=== PATIENT | female | born 1940 | race Asian ===

== ENCOUNTER 2019-11-22 01:00 | Inpatient (IN) | payer MEDICARE ==
[2019-11-22 03:01] VITALS: BP 139/84
[2019-11-22] MEDS ORDERED: Hydrocodone/APAP 5mg/325mg Tab PO PRN (04:24)
[2019-11-22] MEDS: Magnesium Hydroxide (MOM) 30 mL UDC PO SCH (04:30)
[2019-11-22] MEDS: Ferrous Sulfate 325 MG TAB PO SCH (08:33)
[2019-11-22] MEDS: Multivitamin w/ Minerals Tab PO SCH (08:33)
[2019-11-22] MEDS: Calcium Carb/Vit D 500 mg/200 U Tab PO SCH (08:48)
[2019-11-22] MEDS ORDERED: Non-Formulary Item 1 EA (Isosorbide Dinitrate [Isosorbide Dinitrate] 30 MG) PO SCH (09:00)
[2019-11-22] MEDS ORDERED: Non-Formulary Item 1 EA (Cranberry Fruit [Cranberry] 450 MG) PO SCH (09:00)
--- NOTE | 2019-11-22 18:18 | History & Physical ---
ADMIT DATE: 11/22/2019 DICTATING FOR: Dr. Bettencourt. HISTORY OF PRESENT ILLNESS: A 79-year-old female who is medically cleared from [facility] from withdrawal Convalescent, who was admitted to the Geropsych Unit due to increase of agitation and wandering and being nondirectable. PAST MEDICAL HISTORY: Hypertension, hyperlipidemia, cardiomegaly, seizures. PAST SURGICAL HISTORY: Unknown. ALLERGIES: No known drug allergies. HOME MEDICATIONS: See medication list. FAMILY HISTORY: Noncontributory. REVIEW OF SYSTEMS: GENERAL: Denies any fever or chills. CARDIOVASCULAR: Denies chest pain. RESPIRATORY: Denies shortness of breath. GASTROINTESTINAL: Denies nausea, vomiting, abdominal pain. GENITOURINARY: Denies increased frequency. NEUROLOGIC: No headaches, seizures, or syncope. All systems reviewed and negative. PHYSICAL EXAMINATION: EXTREMITIES: The patient is a well-developed, well-nourished, no apparent distress. VITAL SIGNS: Temperature 97.8, heart rate 63, blood pressure 123/72, respirations 20, O2 96%. HEENT: Head; normocephalic, atraumatic. NECK: Supple. No mass. LUNGS: Clear bilaterally. ABDOMEN: Soft, nontender, nondistended. ASSESSMENT: Hypertension, hyperlipidemia, cardiomegaly, seizures, agitation. PLAN: Continue the patient's home medications. Seizure precautions, will initiate fall precautions. We will continue to follow this patient. JOB# [id number]
[2019-11-22] MEDS: Atorvastatin Calcium 10 MG TAB PO SCH (21:02)
[2019-11-23] MEDS ORDERED: Magnesium Hydroxide (MOM) 30 mL UDC PO PRN (04:55)
[2019-11-23] MEDS: Magnesium Hydroxide (MOM) 30 mL UDC PO SCH (04:56)
[2019-11-23] MEDS: Calcium Carb/Vit D 500 mg/200 U Tab PO SCH (08:09)
[2019-11-23] MEDS: Ferrous Sulfate 325 MG TAB PO SCH (08:10)
[2019-11-23] MEDS: Multivitamin w/ Minerals Tab PO SCH (08:10)
--- NOTE | 2019-11-23 09:59 | Psychiatric Evaluation ---
DATE OF SERVICE: PSYCHIATRIC INITIAL EVALUATION AND MENTAL STATUS EXAM PATIENT'S AGE: 79. SEX: Female. PHYSICIAN: Dr. De La Cruz. CHIEF COMPLAINT: Wandering around. HISTORY OF PRESENT ILLNESS: The patient is a 79-year-old female, who was transferred from [facility] because of increased agitation and the patient has been wandering around the facility. The patient also had difficult time following directions. The patient also has been easily agitated and irritable and not able to listen to staff instructions. Staff in the facility was not able to handle her agitation and her being non-redirectable and she was disturbing milieu in the facility and she was transferred to the hospital. The patient has been calm since she arrived to the facility, but still needed redirections. She also has periods of irritability, but not as described by the staff on the unit there and shows slightly easier to redirect her. The patient also went to sleep at midnight and have difficulty trying to wake her up this morning. The patient was alert and oriented. The patient has history a of bipolar disorder and the patient was on Remeron, Zyprexa, and Depakote PAST PSYCHIATRIC HISTORY: The patient has a history of bipolar disorder. PAST MEDICAL HISTORY: The patient has history of hyperlipidemia, hypertension, seizure disorder, and cardiomegaly. CURRENT PSYCHOTROPIC MEDICATIONS: Remeron 15 mg at bedtime, Zyprexa 5 mg at bedtime, and Depakote 250 mg 3 times a day. FAMILY PSYCHIATRIC HISTORY: Nothing reported. CHEMICAL DEPENDENCY HISTORY: Nothing reported. PAIN ASSESSMENT: Nothing reported. LEGAL HISTORY: Nothing reported. ABUSE HISTORY: Nothing reported. SOCIAL HISTORY: The patient lives in [facility]. No known alcohol or street drug use. No information about family or children at this time. ALLERGIES: No known allergies. MENTAL STATUS EXAMINATION: The patient appears her stated age. Unkempt. Unsteady gait. The patient currently seems to be sedated and sleepy and did not answer any of my questions, but reports of unsteady gait and the patient is alert and oriented to time, place, person, and situation. I was not able to assess her orientation or memory at this time because the patient is sedated and was not answering any of my questions. No reports of suicide or homicide, but reports that she was alert and oriented to time, place, person, and situation. Poor insight and the patient did not know why she is in the hospital. Poor judgment and she was wandering in the facility. Unable to assess her intelligence at this time because the patient is sedated and sleepy. ASSESSMENT: PRIMARY DIAGNOSIS: Bipolar disorder, manic episode, moderate to severe, without psychotic features. TREATMENT PLAN: At this time, the patient seems to be more manic than psychotic and we will discontinue Zyprexa, but I will increase Depakote to 500 mg twice a day. Also, we will continue Remeron. The patient also is taking Aricept and will evaluate the patient's memory when more alert and will evaluate the need of Aricept. Also, we will work on behavioral modification. ESTIMATED LENGTH OF STAY: 5-7 days. PATIENT'S STRENGTHS AND WEAKNESSES: The patient seems to be in relatively fair health. Weaknesses is her wandering into other patient's rooms and her irritability. AFTER DISCHARGE PLAN: The patient will return to [facility] with plans for followup there. JOB# [id number]
--- NOTE | 2019-11-23 13:07 | Progress Notes ---
DATE: 11/23/[address] De La Cruz. Case was discussed with staff of the patient, reviewed records. This is a 79-year-old female who was admitted on 11/22/2019. She was wandering around, transferred from [facility] because of increasing agitation. The patient was wandering around, difficulty following direction, easily agitated, irritable, unable to listen to staff instruction, the staff on the nursing facility unable to handle her agitation, was non-redirectable, disturbing milieu in the facility. The patient continues to need redirection. The patient has a history of bipolar disorder. The patient continues to have poor insight. Unable to make safe plan for self-care, unpredictable, impulsive, and needing redirection. Depakote was increased to 500 mg twice a day and she was taken off Zyprexa. No side effects with the medication, no sedation, and no nausea and we will continue to work with the patient in group therapy, milieu therapy, and adjust medication as needed. JOB# [id number]
--- NOTE | 2019-11-23 18:32 | Internal Medicine Prog Note ---
Internal Medicine Subjective - Subjective Service Date: 11/23/19 Patient seen and examined:: with staff Patient is:: awake, verbal, confused Per staff patient has:: tolerating meds Internal Medicine Objective - Physical Exam Vitals and I&O: Vital Signs Temp 97.6 F 11/23/19 14:00 Pulse 78 11/23/19 16:30 Resp 18 11/23/19 14:00 BP 101/58 11/23/19 16:30 Pulse Ox 94 11/23/19 14:00 Intake & Output 11/22/19 11/23/19 11/23/19 18:59 06:59 18:59 Intake Total 240 1200 Balance 240 1200 Intake: Oral 240 1200 Other: # Voids 2 # Bowel Movements 0 1 Active Medications: Current Medications Acetaminophen (Tylenol) 650 mg PO Q6HR PRN PRN Reason: Temperature above 101 Stop: 01/21/20 04:23 Acetaminophen (Tylenol) 650 mg PO Q8HR PRN PRN Reason: Pain (Mild 1-3) Stop: 01/21/20 04:23 Acetaminophen/Hydrocodone Bitart ([place] 5mg/325mg) 1 tab PO Q4HR PRN PRN Reason: Severe Pain (7-10) Stop: 01/21/20 04:23 Ascorbic Acid (Vitamin C) 500 mg PO DAILY [facility] Stop: 01/21/20 08:59 Last Admin: 11/23/19 08:10 Dose: 500 mg Aspirin (Ecotrin) 81 mg PO DAILY [facility] Stop: 01/21/20 08:59 Last Admin: 11/23/19 08:09 Dose: 81 mg Atorvastatin Calcium (Lipitor) 10 mg PO [facility]; Protocol Stop: 01/21/20 20:59 Last Admin: 11/22/19 21:02 Dose: Not Given Bisacodyl (Dulcolax 10 Mg Supp) 10 mg RC DAILY PRN PRN Reason: Constipation Stop: 01/21/20 04:23 Calcium/Vitamin D (Oscal W/Vitamin D) 1 tab PO DAILY [facility] Stop: 01/21/20 08:59 Last Admin: 11/23/19 08:09 Dose: 1 tab Carvedilol (Coreg) 3.125 mg PO BID [facility] Stop: 01/21/20 08:59 Last Admin: 11/23/19 16:30 Dose: Not Given Docusate Sodium (Colace) 100 mg PO DAILY [facility] Stop: 01/21/20 08:59 Last Admin: 11/23/19 08:10 Dose: 100 mg Donepezil HCl (Aricept) 5 mg PO HS [facility] Stop: 01/21/20 20:59 Last Admin: 11/22/19 21:03 Dose: Not Given Ferrous Sulfate (Iron) 325 mg PO DAILY [facility] Stop: 01/21/20 08:59 Last Admin: 11/23/19 08:10 Dose: 325 mg Isosorbide Dinitrate 10 mg/ (Isosorbide Dinitrate 20 mg) 30 mg PO DAILY [facility] Stop: 01/21/20 10:59 Last Admin: 11/23/19 08:16 Dose: 30 mg Lisinopril (Zestril) 10 mg PO HS [facility] Stop: 01/21/20 20:59 Last Admin: 11/22/19 21:04 Dose: Not Given Lorazepam (Ativan) 0.5 mg PO Q4HR PRN; Protocol PRN Reason: Anxiety Stop: 12/22/19 03:00 Magnesium Hydroxide (Milk Of Magnesia) 30 ml PO HS PRN PRN Reason: Constipation Stop: 01/22/20 04:52 Mirtazapine (Remeron) 15 mg PO HS [facility]; Protocol Stop: 01/21/20 20:59 Last Admin: 11/22/19 21:03 Dose: Not Given Valproate Sodium (Depakene) 500 mg PO BID [facility]; Protocol Stop: 01/21/20 08:59 Last Admin: 11/23/19 16:29 Dose: 500 mg Zolpidem Tartrate (Ambien) 5 mg PO HS PRN PRN Reason: Insomnia Stop: 01/21/20 03:00 General: alert, demented HEENT: NC/AT, PERRLA Neck: Supple Lungs: CTAB Cardiovascular: RRR, Normal S1, Normal S2, without murmur Abdomen: soft, non-tender, non-distended, positive bowel sound Internal Medicine Assmt/Plan - Assessment Assessment: ASSESSMENT: Hypertension, hyperlipidemia, cardiomegaly, seizures, agitation. - Plan Plan: PLAN: Continue the patient's home medications. Seizure precautions, will initiate fall precautions. We will continue to follow this patient.
[2019-11-23] MEDS: Atorvastatin Calcium 10 MG TAB PO SCH (21:00)
[2019-11-24] MEDS: Ferrous Sulfate 325 MG TAB PO SCH (08:58)
[2019-11-24] MEDS: Multivitamin w/ Minerals Tab PO SCH (08:58)
[2019-11-24] MEDS: Calcium Carb/Vit D 500 mg/200 U Tab PO SCH (08:59)
--- NOTE | 2019-11-24 12:04 | Progress Notes ---
DATE: 11/24/2019 Case was discussed with staff of the patient, reviewed records. The patient also was hard to redirect, continues to be unable to follow direction, easily agitated and irritable, sometimes refusing medication, unable to participate in meaningful conversation. There has been no side effects with the medication, no sedation, no nausea, no extrapyramidal symptoms, and confused. We will continue to work with the patient in group therapy and milieu therapy, adjust the medication as needed. JOB# [id number] MAYDA
--- NOTE | 2019-11-24 13:21 | Internal Medicine Prog Note ---
Internal Medicine Subjective - Subjective Service Date: 11/24/19 Patient seen and examined:: with staff Patient is:: awake, verbal, agitated Patient Complaints of:: other (Hx of Seizures.) Per staff patient has:: no adverse event, no episodes of fall, tolerating meds Internal Medicine Objective - Physical Exam Vitals and I&O: Vital Signs Temp 96.8 F 11/24/19 06:00 Pulse 62 11/24/19 08:59 Resp 18 11/24/19 06:00 BP 100/52 11/24/19 08:59 Pulse Ox 96 11/24/19 06:00 Intake & Output 11/23/19 11/24/19 11/24/19 18:59 06:59 18:59 Intake Total 1200 240 Output Total 1 Balance 1200 239 Intake: Oral 1200 240 Output: Urine/Stool Mix 1 Other: # Voids 1 # Bowel Movements 1 Active Medications: Current Medications Acetaminophen (Tylenol) 650 mg PO Q6HR PRN PRN Reason: Temperature above 101 Stop: 01/21/20 04:23 Acetaminophen (Tylenol) 650 mg PO Q8HR PRN PRN Reason: Pain (Mild 1-3) Stop: 01/21/20 04:23 Acetaminophen/Hydrocodone Bitart ([place] 5mg/325mg) 1 tab PO Q4HR PRN PRN Reason: Severe Pain (7-10) Stop: 01/21/20 04:23 Ascorbic Acid (Vitamin C) 500 mg PO DAILY [facility] Stop: 01/21/20 08:59 Last Admin: 11/24/19 08:59 Dose: 500 mg Aspirin (Ecotrin) 81 mg PO DAILY [facility] Stop: 01/21/20 08:59 Last Admin: 11/24/19 08:59 Dose: 81 mg Atorvastatin Calcium (Lipitor) 10 mg PO [facility]; Protocol Stop: 01/21/20 20:59 Last Admin: 11/23/19 21:00 Dose: Not Given Bisacodyl (Dulcolax 10 Mg Supp) 10 mg RC DAILY PRN PRN Reason: Constipation Stop: 01/21/20 04:23 Calcium/Vitamin D (Oscal W/Vitamin D) 1 tab PO DAILY [facility] Stop: 01/21/20 08:59 Last Admin: 11/24/19 08:59 Dose: 1 tab Carvedilol (Coreg) 3.125 mg PO BID [facility] Stop: 01/21/20 08:59 Last Admin: 11/24/19 08:58 Dose: 3.125 mg Docusate Sodium (Colace) 100 mg PO DAILY [facility] Stop: 01/21/20 08:59 Last Admin: 11/24/19 08:58 Dose: 100 mg Donepezil HCl (Aricept) 5 mg PO HS [facility] Stop: 01/21/20 20:59 Last Admin: 11/23/19 21:00 Dose: Not Given Ferrous Sulfate (Iron) 325 mg PO DAILY [facility] Stop: 01/21/20 08:59 Last Admin: 11/24/19 08:58 Dose: 325 mg Isosorbide Dinitrate 10 mg/ (Isosorbide Dinitrate 20 mg) 30 mg PO DAILY [facility] Stop: 01/21/20 10:59 Last Admin: 11/24/19 08:59 Dose: Not Given Lisinopril (Zestril) 10 mg PO HS [facility] Stop: 01/21/20 20:59 Last Admin: 11/23/19 21:00 Dose: Not Given Lorazepam (Ativan) 0.5 mg PO Q4HR PRN; Protocol PRN Reason: Anxiety Stop: 12/22/19 03:00 Magnesium Hydroxide (Milk Of Magnesia) 30 ml PO HS PRN PRN Reason: Constipation Stop: 01/22/20 04:52 Mirtazapine (Remeron) 15 mg PO HS [facility]; Protocol Stop: 01/21/20 20:59 Last Admin: 11/23/19 21:01 Dose: Not Given Valproate Sodium (Depakene) 500 mg PO BID [facility]; Protocol Stop: 01/21/20 08:59 Last Admin: 11/24/19 08:58 Dose: 500 mg Zolpidem Tartrate (Ambien) 5 mg PO HS PRN PRN Reason: Insomnia Stop: 01/21/20 03:00 Physical Exam: Patient needs close monitoring, very agitated, easily frustrated. General: alert, demented HEENT: NC/AT, PERRLA Neck: Supple Lungs: CTAB Cardiovascular: RRR, Normal S1, Normal S2, without murmur Abdomen: soft, non-tender, non-distended, positive bowel sound Extremities: clear Neurological: no change Internal Medicine Assmt/Plan - Assessment Assessment: Hypertension. Seizure disorder. Hyperlipidemia. Cardiomegaly. Agitation. - Plan Plan: Continue present meds as directed. Monitor vitals and labs. Supportive care. Psych management as per Psych. Pain management. Monitor diet and nutritional support. Continue current treatment plan as ordered. Nutritional Asmnt/Malnutr-PDOC - Dietary Evaluation Malnutrition Findings (Please click <Entered> for more info): see orders.
[2019-11-24] MEDS: Atorvastatin Calcium 10 MG TAB PO SCH (21:04)
--- NOTE | 2019-11-25 08:52 | Progress Notes ---
DATE: 11/25/2019 SUBJECTIVE: The patient was seen in room. The patient is asleep, but easily arousable. The patient appears to be guarded, easily gets frustrated, poor impulse control. Otherwise, the patient appears to be in no acute distress. OBJECTIVE: VITAL SIGNS: Temperature 99.4, heart rate of 81, blood pressure 113/76, respirations 20, and 99% on room air. HEENT: Head is atraumatic and normocephalic. Eyes: Bilateral conjunctivae are clear. Bilateral pupils are equally round and reactive. NECK: Supple. No JVD. CARDIOVASCULAR: S1 and S2, without murmur. PULMONARY: Clear to auscultation. GASTROINTESTINAL: Soft and nontender without guarding. Positive bowel sounds. MUSCULOSKELETAL: No clubbing. No cyanosis noted. ASSESSMENT: 1. Bipolar disorder. 2. Hypertension. 3. Hyperlipidemia. 4. Seizure disorder. PLAN: We will keep the patient inpatient to Psychiatric Unit. We will follow up with a psychiatrist to monitor the patient's condition and behavior. We will put the patient on fall and on seizure precautions. Treatment plans were discussed with the patient's nurse. Treatment plans were discussed with Dr. Bettencourt. JOB# [id number]
[2019-11-25] MEDS: Ferrous Sulfate 325 MG TAB PO SCH (09:41)
[2019-11-25] MEDS: Multivitamin w/ Minerals Tab PO SCH (09:41)
[2019-11-25] MEDS: Calcium Carb/Vit D 500 mg/200 U Tab PO SCH (09:41)
--- NOTE | 2019-11-25 19:45 | Progress Notes ---
DATE: Case was discussed with staff of the patient, reviewed records. The patient continues to have poor insight, unpredictable, impulsive at times refusing her medication. Continues to be hard to redirect. She is sleeping better. She is a bit more alert, was able to go to the residential. No side effects with the medication, no sedation, no nausea, no extrapyramidal symptoms. We will continue outpatient group therapy, milieu therapy, adjust medication as needed. JOB# [id number]
[2019-11-25] MEDS: Atorvastatin Calcium 10 MG TAB PO SCH (21:02)
[2019-11-26] MEDS: Calcium Carb/Vit D 500 mg/200 U Tab PO SCH (11:18)
[2019-11-26] MEDS: Multivitamin w/ Minerals Tab PO SCH (11:19)
[2019-11-26] MEDS: Ferrous Sulfate 325 MG TAB PO SCH (11:19)
--- NOTE | 2019-11-26 14:10 | Internal Medicine Prog Note ---
Internal Medicine Subjective - Subjective Service Date: 11/26/19 Patient seen and examined:: with staff Patient is:: awake, verbal, agitated Patient Complaints of:: other (Hx of Seizures.) Per staff patient has:: no adverse event, no episodes of fall, tolerating meds Internal Medicine Objective - Physical Exam Vitals and I&O: Vital Signs Temp 97 F 11/26/19 07:00 Pulse 60 11/26/19 11:19 Resp 16 11/26/19 08:00 BP 105/63 11/26/19 11:19 Pulse Ox 97 11/26/19 07:00 Intake & Output 11/25/19 11/26/19 11/26/19 18:59 06:59 18:59 Intake Total 600 240 120 Balance 600 240 120 Intake: Oral 600 240 120 Other: # Voids 3 2 3 # Bowel Movements 0 Active Medications: Current Medications Acetaminophen (Tylenol) 650 mg PO Q6HR PRN PRN Reason: Temperature above 101 Stop: 01/21/20 04:23 Acetaminophen (Tylenol) 650 mg PO Q8HR PRN PRN Reason: Pain (Mild 1-3) Stop: 01/21/20 04:23 Acetaminophen/Hydrocodone Bitart ([place] 5mg/325mg) 1 tab PO Q4HR PRN PRN Reason: Severe Pain (7-10) Stop: 01/21/20 04:23 Last Admin: 11/26/19 11:17 Dose: 1 tab Ascorbic Acid (Vitamin C) 500 mg PO DAILY [facility] Stop: 01/21/20 08:59 Last Admin: 11/26/19 11:18 Dose: Not Given Aspirin (Ecotrin) 81 mg PO DAILY [facility] Stop: 01/21/20 08:59 Last Admin: 11/26/19 11:18 Dose: Not Given Atorvastatin Calcium (Lipitor) 10 mg PO HS [facility]; Protocol Stop: 01/21/20 20:59 Last Admin: 11/25/19 21:02 Dose: 10 mg Bisacodyl (Dulcolax 10 Mg Supp) 10 mg RC DAILY PRN PRN Reason: Constipation Stop: 01/21/20 04:23 Calcium/Vitamin D (Oscal W/Vitamin D) 1 tab PO DAILY [facility] Stop: 01/21/20 08:59 Last Admin: 11/26/19 11:18 Dose: Not Given Carvedilol (Coreg) 3.125 mg PO BID [facility] Stop: 01/21/20 08:59 Last Admin: 11/26/19 11:18 Dose: Not Given Docusate Sodium (Colace) 100 mg PO DAILY [facility] Stop: 01/21/20 08:59 Last Admin: 11/26/19 11:19 Dose: Not Given Donepezil HCl (Aricept) 5 mg PO HS [facility] Stop: 01/21/20 20:59 Last Admin: 11/25/19 21:02 Dose: 5 mg Ferrous Sulfate (Iron) 325 mg PO DAILY [facility] Stop: 01/21/20 08:59 Last Admin: 11/26/19 11:19 Dose: Not Given Isosorbide Dinitrate 10 mg/ (Isosorbide Dinitrate 20 mg) 30 mg PO DAILY [facility] Stop: 01/21/20 10:59 Last Admin: 11/26/19 11:19 Dose: Not Given Lisinopril (Zestril) 10 mg PO HS [facility] Stop: 01/21/20 20:59 Last Admin: 11/25/19 21:02 Dose: 10 mg Lorazepam (Ativan) 0.5 mg PO Q4HR PRN; Protocol PRN Reason: Anxiety Stop: 12/22/19 03:00 Last Admin: 11/26/19 11:17 Dose: 0.5 mg Magnesium Hydroxide (Milk Of Magnesia) 30 ml PO HS PRN PRN Reason: Constipation Stop: 01/22/20 04:52 Mirtazapine (Remeron) 15 mg PO HS [facility]; Protocol Stop: 01/21/20 20:59 Last Admin: 11/25/19 21:03 Dose: 15 mg Valproate Sodium (Depakene) 500 mg PO BID [facility]; Protocol Stop: 01/21/20 08:59 Last Admin: 11/26/19 09:17 Dose: 500 mg Zolpidem Tartrate (Ambien) 5 mg PO HS PRN PRN Reason: Insomnia Stop: 01/21/20 03:00 Physical Exam: Patient needs close monitoring, poor insight, irritable, refuses to take meds at times. General: alert, demented HEENT: NC/AT, PERRLA Neck: Supple Lungs: CTAB Cardiovascular: RRR, Normal S1, Normal S2, without murmur Abdomen: soft, non-tender, non-distended, positive bowel sound Extremities: clear Neurological: no change Internal Medicine Assmt/Plan - Assessment Assessment: Hypertension. Seizure disorder. Hyperlipidemia. Cardiomegaly. Agitation. - Plan Plan: Continue present meds as directed. Monitor vitals and labs. Supportive care. Psych management as per Psych. Pain management. Monitor diet and nutritional support. Continue current treatment plan as ordered. Nutritional Asmnt/Malnutr-PDOC - Dietary Evaluation Malnutrition Findings (Please click <Entered> for more info): Nutritional Asmnt/Malnutrition Start: 11/26/19 13: 23 Text: Status: Complete Freq: Protocol: Document 11/26/19 13:23 JEROME (Rec: 11/26/19 13:32 JEROME [id number]) Nutritional Asmnt/Malnutrition Patient General Information Nutritional Screening Moderate Risk Diagnosis Psychosis Pertinent Medical Hx/Surgical Hx HTN, Hyperlipidemia, Cardiomegaly, Seizures Subjective Information Pt is a 79-year-old female admitted on 11/22 d/t increased agitation and wandering without being redirectable. Pt is eating an estimated 50% of meals since admit date (x4 days) Per Meal/Nutrition Activity Record. Dietary is currently providing an estimated 1900 kcals and 80 gm Pro, per Pt PO intake this is providing an estimated 950 kcals and 40gm Pro to meet 70% kcal and 73% Pro needs. Nurse to encourage improved PO intake, will continue to monitor and recommend supplement as needed. Spoke with pt nurse Diamond concerning high BG lab value. A1c was ordered 11/22, results not in chart. Diamond is going to call lab to print out another copy of results. Will monitor and make diet recommendations as appropriate. Anthropometrics HT: 5 FT WT: 120 LB (54.55 kg) BMI: 23.46 (normal) GI/ Skin Integrity GI: WNL, Soft, Flat, Non- tender BM: 11/24 x1 I/O: 120/Not Noted Skin: WNL, Intact Tee: 19 Diet Order: Cardiac, WILDER Estimated Energy Needs: ( Geriatric, CBW) 8267-4750 kcals (25-30 kcals/ kg) 55-65g Pro (1.0-1.2 g/kg) 7869-3347 ml (25-30 ml/kg) Current Diet Order/ Nutrition Support Cardiac, WILDER Pertinent Medications Vitamin C, Lipitor, Dulcolax ( PRN), [place] with Vitamin D, Coreg, Ferrous Sulfate, MOM ( PRN) Pertinent Labs 11/21: Glucose 148, Alk Phos 130, Chol 225, LDL 127, HDL 50 Nutritional Hx/Data Height 1.52 m Height (Calculated Centimeters) 152.4 Current Weight (lbs) 54.431 kg Weight (Calculated Kilograms) 54.4 Weight (Calculated Grams) 31277.1 [place] Body Weight 100 LB (45.45 kg) % [place] Body Weight 120 Body Mass Index (BMI) 23.4 Weight Status Approriate GI Symptoms Last BM 11/24 x1 Skin Integrity/Comment: Skin: WNL, Intact Tee: 19 Current %PO Fair (50-74%) Estimated Nutritional Goals BEE in Kcals: Using Current wt Calories/Kcals/Kg 25-30 Kcals Calculated 3633-9246 Protein: Using Current wt Protein g/k.0-1.2 Protein Calculated 55-65 Fluid: ml 9165-2815 ml (25-30 ml/kg) Nutritional Problem 1. Problem Problem Altered nutrition related labs Etiology r/t endocrine dysfunction Signs/Symptoms: aeb labs (11/21) Glucose 148. Intervention/Recommendation Comments Continue Cardiac, WILDER diet as tolerated. Expected Outcomes/Goals Expected Outcomes/Goals 1.PO intake to meet 75% of estimated nutritional needs. 2.Monitor PO intake, wt, nutrition related labs, and skin integrity. 3.F/U as low risk in 7-10 days , 12/02-12/04.
--- NOTE | 2019-11-26 20:13 | Progress Notes ---
DATE: 11/26/2019 SUBJECTIVE: Case was discussed with staff of the patient, reviewed records. The patient is confused, unable to make safe plan for self-care. Continues to have poor insight, impulsive and unpredictable, hard to redirect. She refuses medication at times. No side effects with the medication, no sedation, no nausea, no extrapyramidal symptoms. We will continue to work with the patient in group therapy, milieu therapy, and adjust medication as needed. JOB# [id number]
[2019-11-26] MEDS: Atorvastatin Calcium 10 MG TAB PO SCH (21:00)
[2019-11-27] MEDS: Ferrous Sulfate 325 MG TAB PO SCH (09:48)
[2019-11-27] MEDS: Calcium Carb/Vit D 500 mg/200 U Tab PO SCH (09:48)
[2019-11-27] MEDS: Multivitamin w/ Minerals Tab PO SCH (09:49)
--- NOTE | 2019-11-27 11:05 | Internal Medicine Prog Note ---
Internal Medicine Subjective - Subjective Service Date: 11/27/19 Patient seen and examined:: with staff, chart reviewed Patient is:: awake, verbal, agitated Patient Complaints of:: other (Hx of Seizures.) Per staff patient has:: no adverse event, no episodes of fall, tolerating meds Internal Medicine Objective - Physical Exam Vitals and I&O: Vital Signs Temp 98.4 F 11/27/19 06:43 Pulse 65 11/27/19 09:49 Resp 18 11/27/19 06:43 BP 95/61 11/27/19 09:49 Pulse Ox 98 11/27/19 06:43 Intake & Output 11/26/19 11/27/19 11/27/19 18:59 06:59 18:59 Intake Total 520 300 Balance 520 300 Intake: Oral 520 300 Other: # Voids 3 3 # Bowel Movements 0 Active Medications: Current Medications Acetaminophen (Tylenol) 650 mg PO Q6HR PRN PRN Reason: Temperature above 101 Stop: 01/21/20 04:23 Acetaminophen (Tylenol) 650 mg PO Q8HR PRN PRN Reason: Pain (Mild 1-3) Stop: 01/21/20 04:23 Acetaminophen/Hydrocodone Bitart ([place] 5mg/325mg) 1 tab PO Q4HR PRN PRN Reason: Severe Pain (7-10) Stop: 01/21/20 04:23 Last Admin: 11/26/19 11:17 Dose: 1 tab Ascorbic Acid (Vitamin C) 500 mg PO DAILY [facility] Stop: 01/21/20 08:59 Last Admin: 11/27/19 09:49 Dose: 500 mg Aspirin (Ecotrin) 81 mg PO DAILY [facility] Stop: 01/21/20 08:59 Last Admin: 11/27/19 09:49 Dose: 81 mg Atorvastatin Calcium (Lipitor) 10 mg PO HS [facility]; Protocol Stop: 01/21/20 20:59 Last Admin: 11/26/19 21:00 Dose: 10 mg Bisacodyl (Dulcolax 10 Mg Supp) 10 mg RC DAILY PRN PRN Reason: Constipation Stop: 01/21/20 04:23 Calcium/Vitamin D (Oscal W/Vitamin D) 1 tab PO DAILY [facility] Stop: 01/21/20 08:59 Last Admin: 11/27/19 09:48 Dose: 1 tab Carvedilol (Coreg) 3.125 mg PO BID [facility] Stop: 01/21/20 08:59 Last Admin: 11/27/19 09:49 Dose: Not Given Docusate Sodium (Colace) 100 mg PO DAILY [facility] Stop: 01/21/20 08:59 Last Admin: 11/27/19 09:48 Dose: 100 mg Donepezil HCl (Aricept) 5 mg PO HS [facility] Stop: 01/21/20 20:59 Last Admin: 11/26/19 21:00 Dose: 5 mg Ferrous Sulfate (Iron) 325 mg PO DAILY [facility] Stop: 01/21/20 08:59 Last Admin: 11/27/19 09:48 Dose: 325 mg Isosorbide Dinitrate 10 mg/ (Isosorbide Dinitrate 20 mg) 30 mg PO DAILY [facility] Stop: 01/21/20 10:59 Last Admin: 11/27/19 09:49 Dose: Not Given Lisinopril (Zestril) 10 mg PO HS [facility] Stop: 01/21/20 20:59 Last Admin: 11/26/19 21:00 Dose: 10 mg Lorazepam (Ativan) 0.5 mg PO Q4HR PRN; Protocol PRN Reason: Anxiety Stop: 12/22/19 03:00 Last Admin: 11/26/19 11:17 Dose: 0.5 mg Magnesium Hydroxide (Milk Of Magnesia) 30 ml PO HS PRN PRN Reason: Constipation Stop: 01/22/20 04:52 Mirtazapine (Remeron) 15 mg PO HS [facility]; Protocol Stop: 01/21/20 20:59 Last Admin: 11/26/19 21:02 Dose: 15 mg Valproate Sodium (Depakene) 500 mg PO BID [facility]; Protocol Stop: 01/21/20 08:59 Last Admin: 11/27/19 09:48 Dose: 500 mg Zolpidem Tartrate (Ambien) 5 mg PO HS PRN PRN Reason: Insomnia Stop: 01/21/20 03:00 Last Admin: 11/26/19 21:03 Dose: 5 mg Physical Exam: Patient needs close monitoring, still non-cooperative with taking medications, easily frustrated and irritable. General: alert, demented HEENT: NC/AT, PERRLA Neck: Supple Lungs: CTAB Cardiovascular: RRR, Normal S1, Normal S2, without murmur Abdomen: soft, non-tender, non-distended, positive bowel sound Extremities: clear Neurological: no change Internal Medicine Assmt/Plan - Assessment Assessment: Hypertension. Seizure disorder. Hyperlipidemia. Cardiomegaly. Agitation. - Plan Plan: Continue present meds as directed. Monitor vitals and labs. Supportive care. Psych management as per Psych. Pain management. Monitor diet and nutritional support. Continue current treatment plan as ordered. Nutritional Asmnt/Malnutr-PDOC - Dietary Evaluation Malnutrition Findings (Please click <Entered> for more info): Nutritional Asmnt/Malnutrition Start: 11/26/19 13: 23 Text: Status: Complete Freq: Protocol: Document 11/26/19 13:23 JEROME (Rec: 11/26/19 13:32 JEROME [email or web address]) Nutritional Asmnt/Malnutrition Patient General Information Nutritional Screening Moderate Risk Diagnosis Psychosis Pertinent Medical Hx/Surgical Hx HTN, Hyperlipidemia, Cardiomegaly, Seizures Subjective Information Pt is a 79-year-old female admitted on 11/22 d/t increased agitation and wandering without being redirectable. Pt is eating an estimated 50% of meals since admit date (x4 days) Per Meal/Nutrition Activity Record. Dietary is currently providing an estimated 1900 kcals and 80 gm Pro, per Pt PO intake this is providing an estimated 950 kcals and 40gm Pro to meet 70% kcal and 73% Pro needs. Nurse to encourage improved PO intake, will continue to monitor and recommend supplement as needed. Spoke with pt nurse Diamond concerning high BG lab value. A1c was ordered 11/22, results not in chart. Diamond is going to call lab to print out another copy of results. Will monitor and make diet recommendations as appropriate. Anthropometrics HT: 5 FT WT: 120 LB (54.55 kg) BMI: 23.46 (normal) GI/ Skin Integrity GI: WNL, Soft, Flat, Non- tender BM: 11/24 x1 I/O: 120/Not Noted Skin: WNL, Intact Tee: 19 Diet Order: Cardiac, WILDER Estimated Energy Needs: ( Geriatric, CBW) 1905-9687 kcals (25-30 kcals/ kg) 55-65g Pro (1.0-1.2 g/kg) 2601-3427 ml (25-30 ml/kg) Current Diet Order/ Nutrition Support Cardiac, WILDER Pertinent Medications Vitamin C, Lipitor, Dulcolax ( PRN), [place] with Vitamin D, Coreg, Ferrous Sulfate, MOM ( PRN) Pertinent Labs 11/21: Glucose 148, Alk Phos 130, Chol 225, LDL 127, HDL 50 Nutritional Hx/Data Height 1.52 m Height (Calculated Centimeters) 152.4 Current Weight (lbs) 54.431 kg Weight (Calculated Kilograms) 54.4 Weight (Calculated Grams) 59800.1 [place] Body Weight 100 LB (45.45 kg) % [place] Body Weight 120 Body Mass Index (BMI) 23.4 Weight Status Approriate GI Symptoms Last BM 11/24 x1 Skin Integrity/Comment: Skin: WNL, Intact Tee: 19 Current %PO Fair (50-74%) Estimated Nutritional Goals BEE in Kcals: Using Current wt Calories/Kcals/Kg 25-30 Kcals Calculated 3720-3068 Protein: Using Current wt Protein g/k.0-1.2 Protein Calculated 55-65 Fluid: ml 7789-6590 ml (25-30 ml/kg) Nutritional Problem 1. Problem Problem Altered nutrition related labs Etiology r/t endocrine dysfunction Signs/Symptoms: aeb labs (11/21) Glucose 148. Intervention/Recommendation Comments Continue Cardiac, WILDER diet as tolerated. Expected Outcomes/Goals Expected Outcomes/Goals 1.PO intake to meet 75% of estimated nutritional needs. 2.Monitor PO intake, wt, nutrition related labs, and skin integrity. 3.F/U as low risk in 7-10 days , 12/02-12/04.
--- NOTE | 2019-11-27 18:47 | Progress Notes ---
DATE: 11/27/2019 Case was discussed with staff of the patient, reviewed records. The patient continues to be confused, continues to be easily agitated, continues to be hard to redirect, sometimes refusing medication, unpredictable, impulsive, hard to redirect at times. No side effects of the medication, no sedation, no nausea, no extrapyramidal symptoms. We will continue outpatient group therapy, milieu therapy, adjust medication as needed. JOB# [id number]
[2019-11-27] MEDS: Atorvastatin Calcium 10 MG TAB PO SCH (20:56)
[2019-11-28] MEDS: Ferrous Sulfate 325 MG TAB PO SCH (09:22)
[2019-11-28] MEDS: Multivitamin w/ Minerals Tab PO SCH (09:22)
[2019-11-28] MEDS: Calcium Carb/Vit D 500 mg/200 U Tab PO SCH (09:23)
--- NOTE | 2019-11-28 12:30 | Internal Medicine Prog Note ---
Internal Medicine Subjective - Subjective Service Date: 11/28/19 Patient seen and examined:: with staff, chart reviewed Patient is:: awake, verbal, agitated Patient Complaints of:: other (Hx of Seizures.) Per staff patient has:: no adverse event, no episodes of fall, tolerating meds Internal Medicine Objective - Physical Exam Vitals and I&O: Vital Signs Temp 98.2 F 11/28/19 06:29 Pulse 70 11/28/19 09:23 Resp 18 11/28/19 07:53 BP 95/65 11/28/19 09:23 Pulse Ox 92 11/28/19 06:29 Intake & Output 11/27/19 11/28/19 11/28/19 18:59 06:59 18:59 Intake Total 850 240 Balance 850 240 Intake: Oral 850 240 Other: # Voids 3 2 # Bowel Movements 0 Active Medications: Current Medications Acetaminophen (Tylenol) 650 mg PO Q6HR PRN PRN Reason: Temperature above 101 Stop: 01/21/20 04:23 Acetaminophen (Tylenol) 650 mg PO Q8HR PRN PRN Reason: Pain (Mild 1-3) Stop: 01/21/20 04:23 Acetaminophen/Hydrocodone Bitart ([place] 5mg/325mg) 1 tab PO Q4HR PRN PRN Reason: Severe Pain (7-10) Stop: 01/21/20 04:23 Last Admin: 11/26/19 11:17 Dose: 1 tab Ascorbic Acid (Vitamin C) 500 mg PO DAILY [facility] Stop: 01/21/20 08:59 Last Admin: 11/28/19 09:22 Dose: 500 mg Aspirin (Ecotrin) 81 mg PO DAILY [facility] Stop: 01/21/20 08:59 Last Admin: 11/28/19 09:22 Dose: 81 mg Atorvastatin Calcium (Lipitor) 10 mg PO HS [facility]; Protocol Stop: 01/21/20 20:59 Last Admin: 11/27/19 20:56 Dose: 10 mg Bisacodyl (Dulcolax 10 Mg Supp) 10 mg RC DAILY PRN PRN Reason: Constipation Stop: 01/21/20 04:23 Calcium/Vitamin D (Oscal W/Vitamin D) 1 tab PO DAILY [facility] Stop: 01/21/20 08:59 Last Admin: 11/28/19 09:23 Dose: 1 tab Carvedilol (Coreg) 3.125 mg PO BID [facility] Stop: 01/21/20 08:59 Last Admin: 11/28/19 09:23 Dose: Not Given Docusate Sodium (Colace) 100 mg PO DAILY [facility] Stop: 01/21/20 08:59 Last Admin: 11/28/19 09:22 Dose: 100 mg Donepezil HCl (Aricept) 5 mg PO HS [facility] Stop: 01/21/20 20:59 Last Admin: 11/27/19 20:56 Dose: 5 mg Ferrous Sulfate (Iron) 325 mg PO DAILY [facility] Stop: 01/21/20 08:59 Last Admin: 11/28/19 09:22 Dose: 325 mg Isosorbide Mononitrate (Imdur) 30 mg PO DAILY [facility] Stop: 01/27/20 08:59 Last Admin: 11/28/19 09:23 Dose: Not Given Lisinopril (Zestril) 10 mg PO HS [facility] Stop: 01/21/20 20:59 Last Admin: 11/27/19 20:57 Dose: Not Given Lorazepam (Ativan) 0.5 mg PO Q4HR PRN; Protocol PRN Reason: Anxiety Stop: 12/22/19 03:00 Last Admin: 11/28/19 02:13 Dose: 0.5 mg Magnesium Hydroxide (Milk Of Magnesia) 30 ml PO HS PRN PRN Reason: Constipation Stop: 01/22/20 04:52 Mirtazapine (Remeron) 15 mg PO HS [facility]; Protocol Stop: 01/21/20 20:59 Last Admin: 11/27/19 20:58 Dose: 15 mg Valproate Sodium (Depakene) 500 mg PO BID [facility]; Protocol Stop: 01/21/20 08:59 Last Admin: 11/28/19 09:22 Dose: 500 mg Zolpidem Tartrate (Ambien) 5 mg PO HS PRN PRN Reason: Insomnia Stop: 01/21/20 03:00 Last Admin: 11/27/19 20:58 Dose: 5 mg Physical Exam: Patient needs close monitoring, very confused, very impulsive, still agitated. General: alert, demented HEENT: NC/AT, PERRLA Neck: Supple Lungs: CTAB Cardiovascular: RRR, Normal S1, Normal S2, without murmur Abdomen: soft, non-tender, non-distended, positive bowel sound Extremities: clear Neurological: no change Internal Medicine Assmt/Plan - Assessment Assessment: Hypertension. Seizure disorder. Hyperlipidemia. Cardiomegaly. Agitation. - Plan Plan: Continue present meds as directed. Monitor vitals and labs. Supportive care. Psych management as per Psych. Pain management. Monitor diet and nutritional support. Continue current treatment plan as ordered. Nutritional Asmnt/Malnutr-PDOC - Dietary Evaluation Malnutrition Findings (Please click <Entered> for more info): Nutritional Asmnt/Malnutrition Start: 11/26/19 13: 23 Text: Status: Complete Freq: Protocol: Document 11/26/19 13:23 JEROME (Rec: 11/26/19 13:32 JEROME [id number]) Nutritional Asmnt/Malnutrition Patient General Information Nutritional Screening Moderate Risk Diagnosis Psychosis Pertinent Medical Hx/Surgical Hx HTN, Hyperlipidemia, Cardiomegaly, Seizures Subjective Information Pt is a 79-year-old female admitted on 11/22 d/t increased agitation and wandering without being redirectable. Pt is eating an estimated 50% of meals since admit date (x4 days) Per Meal/Nutrition Activity Record. Dietary is currently providing an estimated 1900 kcals and 80 gm Pro, per Pt PO intake this is providing an estimated 950 kcals and 40gm Pro to meet 70% kcal and 73% Pro needs. Nurse to encourage improved PO intake, will continue to monitor and recommend supplement as needed. Spoke with pt nurse Diamond concerning high BG lab value. A1c was ordered 11/22, results not in chart. Diamond is going to call lab to print out another copy of results. Will monitor and make diet recommendations as appropriate. Anthropometrics HT: 5 FT WT: 120 LB (54.55 kg) BMI: 23.46 (normal) GI/ Skin Integrity GI: WNL, Soft, Flat, Non- tender BM: 11/24 x1 I/O: 120/Not Noted Skin: WNL, Intact Tee: 19 Diet Order: Cardiac, WILDER Estimated Energy Needs: ( Geriatric, CBW) 1331-6483 kcals (25-30 kcals/ kg) 55-65g Pro (1.0-1.2 g/kg) 7825-4787 ml (25-30 ml/kg) Current Diet Order/ Nutrition Support Cardiac, WILDER Pertinent Medications Vitamin C, Lipitor, Dulcolax ( PRN), [place] with Vitamin D, Coreg, Ferrous Sulfate, MOM ( PRN) Pertinent Labs 11/21: Glucose 148, Alk Phos 130, Chol 225, LDL 127, HDL 50 Nutritional Hx/Data Height 1.52 m Height (Calculated Centimeters) 152.4 Current Weight (lbs) 54.431 kg Weight (Calculated Kilograms) 54.4 Weight (Calculated Grams) 31502.1 [place] Body Weight 100 LB (45.45 kg) % [place] Body Weight 120 Body Mass Index (BMI) 23.4 Weight Status Approriate GI Symptoms Last BM 11/24 x1 Skin Integrity/Comment: Skin: WNL, Intact Tee: 19 Current %PO Fair (50-74%) Estimated Nutritional Goals BEE in Kcals: Using Current wt Calories/Kcals/Kg 25-30 Kcals Calculated 1810-9594 Protein: Using Current wt Protein g/k.0-1.2 Protein Calculated 55-65 Fluid: ml 7652-8522 ml (25-30 ml/kg) Nutritional Problem 1. Problem Problem Altered nutrition related labs Etiology r/t endocrine dysfunction Signs/Symptoms: aeb labs (11/21) Glucose 148. Intervention/Recommendation Comments Continue Cardiac, WILDER diet as tolerated. Expected Outcomes/Goals Expected Outcomes/Goals 1.PO intake to meet 75% of estimated nutritional needs. 2.Monitor PO intake, wt, nutrition related labs, and skin integrity. 3.F/U as low risk in 7-10 days , 12/02-12/04.
[2019-11-28] MEDS: Atorvastatin Calcium 10 MG TAB PO SCH (20:45)
--- NOTE | 2019-11-28 23:41 | Progress Notes ---
DATE: 11/28/2019 Case was discussed with staff of the patient, reviewed records. The patient continues to be internally preoccupied. Continues to have poor insight, unable to make safe plan for self-care, unpredictable, impulsive, needing redirection. Sleeping better, eating better. No side effects with the medication, no sedation, no nausea, no extrapyramidal symptoms. Sometimes refuses medication. We will continue outpatient group therapy, milieu therapy, adjust medication as needed. JOB# [id number]
[2019-11-29] MEDS: Ferrous Sulfate 325 MG TAB PO SCH (08:26)
[2019-11-29] MEDS: Multivitamin w/ Minerals Tab PO SCH (08:26)
[2019-11-29] MEDS: Calcium Carb/Vit D 500 mg/200 U Tab PO SCH (08:26)
--- NOTE | 2019-11-29 13:40 | Internal Medicine Prog Note ---
Internal Medicine Subjective - Subjective Service Date: 11/29/19 Patient seen and examined:: with staff Patient is:: awake, verbal, agitated Patient Complaints of:: other (Hx of Seizures.) Per staff patient has:: no adverse event, no episodes of fall, tolerating meds Internal Medicine Objective - Physical Exam Vitals and I&O: Vital Signs Temp 98.2 F 11/28/19 20:30 Pulse 64 11/29/19 08:26 Resp 18 11/29/19 08:00 BP 112/66 11/29/19 08:26 Pulse Ox 98 11/28/19 20:30 Intake & Output 11/28/19 11/29/19 11/29/19 18:59 06:59 18:59 Intake Total 960 120 Balance 960 120 Intake: Oral 960 120 Other: # Voids 2 2 # Bowel Movements 0 0 Active Medications: Current Medications Acetaminophen (Tylenol) 650 mg PO Q6HR PRN PRN Reason: Temperature above 101 Stop: 01/21/20 04:23 Acetaminophen (Tylenol) 650 mg PO Q8HR PRN PRN Reason: Pain (Mild 1-3) Stop: 01/21/20 04:23 Acetaminophen/Hydrocodone Bitart ([place] 5mg/325mg) 1 tab PO Q4HR PRN PRN Reason: Severe Pain (7-10) Stop: 01/21/20 04:23 Last Admin: 11/26/19 11:17 Dose: 1 tab Ascorbic Acid (Vitamin C) 500 mg PO DAILY [facility] Stop: 01/21/20 08:59 Last Admin: 11/29/19 08:26 Dose: 500 mg Aspirin (Ecotrin) 81 mg PO DAILY [facility] Stop: 01/21/20 08:59 Last Admin: 11/29/19 08:26 Dose: 81 mg Atorvastatin Calcium (Lipitor) 10 mg PO HS [facility]; Protocol Stop: 01/21/20 20:59 Last Admin: 11/28/19 20:45 Dose: 10 mg Bisacodyl (Dulcolax 10 Mg Supp) 10 mg RC DAILY PRN PRN Reason: Constipation Stop: 01/21/20 04:23 Calcium/Vitamin D (Oscal W/Vitamin D) 1 tab PO DAILY [facility] Stop: 01/21/20 08:59 Last Admin: 11/29/19 08:26 Dose: 1 tab Carvedilol (Coreg) 3.125 mg PO BID [facility] Stop: 01/21/20 08:59 Last Admin: 11/29/19 08:26 Dose: 3.125 mg Docusate Sodium (Colace) 100 mg PO DAILY [facility] Stop: 01/21/20 08:59 Last Admin: 11/29/19 08:28 Dose: 100 mg Donepezil HCl (Aricept) 5 mg PO HS [facility] Stop: 01/21/20 20:59 Last Admin: 11/28/19 20:46 Dose: 5 mg Ferrous Sulfate (Iron) 325 mg PO DAILY [facility] Stop: 01/21/20 08:59 Last Admin: 11/29/19 08:26 Dose: 325 mg Isosorbide Mononitrate (Imdur) 30 mg PO DAILY [facility] Stop: 01/27/20 08:59 Last Admin: 11/29/19 08:29 Dose: Not Given Lisinopril (Zestril) 10 mg PO HS [facility] Stop: 01/21/20 20:59 Last Admin: 11/28/19 20:46 Dose: 10 mg Lorazepam (Ativan) 0.5 mg PO Q4HR PRN; Protocol PRN Reason: Anxiety Stop: 12/22/19 03:00 Last Admin: 11/28/19 02:13 Dose: 0.5 mg Magnesium Hydroxide (Milk Of Magnesia) 30 ml PO HS PRN PRN Reason: Constipation Stop: 01/22/20 04:52 Mirtazapine (Remeron) 15 mg PO HS [facility]; Protocol Stop: 01/21/20 20:59 Last Admin: 11/28/19 20:47 Dose: 15 mg Valproate Sodium (Depakene) 500 mg PO BID [facility]; Protocol Stop: 01/21/20 08:59 Last Admin: 11/29/19 08:26 Dose: 500 mg Zolpidem Tartrate (Ambien) 5 mg PO HS PRN PRN Reason: Insomnia Stop: 01/21/20 03:00 Last Admin: 11/28/19 20:47 Dose: 5 mg Physical Exam: Patient needs close monitoring, easily frustrated, dis-oriented, has poor judgment. General: alert, demented HEENT: NC/AT, PERRLA Neck: Supple Lungs: CTAB Cardiovascular: RRR, Normal S1, Normal S2, without murmur Abdomen: soft, non-tender, non-distended, positive bowel sound Extremities: clear Neurological: no change Internal Medicine Assmt/Plan - Assessment Assessment: Hypertension. Seizure disorder. Hyperlipidemia. Cardiomegaly. Agitation. - Plan Plan: Continue present meds as directed. Monitor vitals and labs. Supportive care. Psych management as per Psych. Pain management. Monitor diet and nutritional support. Continue present care management. Nutritional Asmnt/Malnutr-PDOC - Dietary Evaluation Malnutrition Findings (Please click <Entered> for more info): Nutritional Asmnt/Malnutrition Start: 11/26/19 13: 23 Text: Status: Complete Freq: Protocol: Document 11/26/19 13:23 JEROME (Rec: 11/26/19 13:32 JEROME [id number]) Nutritional Asmnt/Malnutrition Patient General Information Nutritional Screening Moderate Risk Diagnosis Psychosis Pertinent Medical Hx/Surgical Hx HTN, Hyperlipidemia, Cardiomegaly, Seizures Subjective Information Pt is a 79-year-old female admitted on 11/22 d/t increased agitation and wandering without being redirectable. Pt is eating an estimated 50% of meals since admit date (x4 days) Per Meal/Nutrition Activity Record. Dietary is currently providing an estimated 1900 kcals and 80 gm Pro, per Pt PO intake this is providing an estimated 950 kcals and 40gm Pro to meet 70% kcal and 73% Pro needs. Nurse to encourage improved PO intake, will continue to monitor and recommend supplement as needed. Spoke with pt nurse Diamond concerning high BG lab value. A1c was ordered 11/22, results not in chart. Diamond is going to call lab to print out another copy of results. Will monitor and make diet recommendations as appropriate. Anthropometrics HT: 5 FT WT: 120 LB (54.55 kg) BMI: 23.46 (normal) GI/ Skin Integrity GI: WNL, Soft, Flat, Non- tender BM: 11/24 x1 I/O: 120/Not Noted Skin: WNL, Intact Tee: 19 Diet Order: Cardiac, WILDER Estimated Energy Needs: ( Geriatric, CBW) 1845-9955 kcals (25-30 kcals/ kg) 55-65g Pro (1.0-1.2 g/kg) 7037-2225 ml (25-30 ml/kg) Current Diet Order/ Nutrition Support Cardiac, WILDER Pertinent Medications Vitamin C, Lipitor, Dulcolax ( PRN), [place] with Vitamin D, Coreg, Ferrous Sulfate, MOM ( PRN) Pertinent Labs 11/21: Glucose 148, Alk Phos 130, Chol 225, LDL 127, HDL 50 Nutritional Hx/Data Height 1.52 m Height (Calculated Centimeters) 152.4 Current Weight (lbs) 54.431 kg Weight (Calculated Kilograms) 54.4 Weight (Calculated Grams) 62684.1 [place] Body Weight 100 LB (45.45 kg) % [place] Body Weight 120 Body Mass Index (BMI) 23.4 Weight Status Approriate GI Symptoms Last BM 11/24 x1 Skin Integrity/Comment: Skin: WNL, Intact Tee: 19 Current %PO Fair (50-74%) Estimated Nutritional Goals BEE in Kcals: Using Current wt Calories/Kcals/Kg 25-30 Kcals Calculated 7218-8433 Protein: Using Current wt Protein g/k.0-1.2 Protein Calculated 55-65 Fluid: ml 8242-1407 ml (25-30 ml/kg) Nutritional Problem 1. Problem Problem Altered nutrition related labs Etiology r/t endocrine dysfunction Signs/Symptoms: aeb labs (11/21) Glucose 148. Intervention/Recommendation Comments Continue Cardiac, WILDER diet as tolerated. Expected Outcomes/Goals Expected Outcomes/Goals 1.PO intake to meet 75% of estimated nutritional needs. 2.Monitor PO intake, wt, nutrition related labs, and skin integrity. 3.F/U as low risk in 7-10 days , 12/02-12/04.
[2019-11-29] MEDS: Atorvastatin Calcium 10 MG TAB PO SCH (21:03)
--- NOTE | 2019-11-29 21:16 | Progress Notes ---
DATE: 11/29/2019 SUBJECTIVE: Chart was reviewed and the patient interviewed. Also discussed the patient's condition with the staff and reviewed records and labs. The patient is still resisting care and she is still in irritable and angry mood. The patient also is still suspicious and paranoid and needs prompt instructions for her ADLs compliance and also to take her medications. She also is still rambling and still has disorganized thoughts. Otherwise, the patient has continued to take her medications with no side effects. ASSESSMENT: The patient is still agitated and seems to be psychotic. TREATMENT PLAN: Continue Remeron 50 mg at bedtime and Depakote 500 mg twice a day and Aricept 5 mg at bedtime. Also, we will monitor Depakote blood level. Also, we will continue working on her poor impulse control and irritability. Hemoglobin A1c that was done on 11/27/2019 came back at 7. We will continue to monitor hemoglobin A1c level and monitor her blood sugar. JOB# [id number]
--- NOTE | 2019-11-30 07:25 | Progress Notes ---
DATE: SUBJECTIVE: Chart was reviewed and patient interviewed. Also discussed patient's condition with the staff and reviewed records and labs. The patient is still confused and anxious, but cooperative with her treatment. The patient also is interacting more. She also has been compliant with taking her medications with no side effects of medications. During interview, patient is still unkempt. She also seems to be slightly confused. She also still seems to be slightly suspicious and paranoid. Otherwise, no behavioral issues. ASSESSMENT: The patient is still confused. TREATMENT PLAN: Continue monitoring behavior and condition closely. Also Depakote blood level results are still pending. Also, working on her discharge plans and placement issue. JOB# [id number]
--- NOTE | 2019-11-30 11:15 | Internal Medicine Prog Note ---
Internal Medicine Subjective - Subjective Service Date: 11/30/19 Patient is:: awake, verbal, agitated Patient Complaints of:: other (Hx of Seizures.) Per staff patient has:: no adverse event, no episodes of fall, tolerating meds Internal Medicine Objective - Physical Exam Vitals and I&O: Vital Signs Temp 97.4 F 11/29/19 20:43 Pulse 93 11/29/19 21:03 Resp 18 11/30/19 08:00 BP 98/59 11/29/19 21:03 Pulse Ox 100 11/29/19 20:43 Intake & Output 11/29/19 11/30/19 11/30/19 18:59 06:59 18:59 Intake Total 360 120 Balance 360 120 Intake: Oral 360 120 Other: # Voids 2 1 # Bowel Movements 0 0 Active Medications: Current Medications Acetaminophen (Tylenol) 650 mg PO Q6HR PRN PRN Reason: Temperature above 101 Stop: 01/21/20 04:23 Acetaminophen (Tylenol) 650 mg PO Q8HR PRN PRN Reason: Pain (Mild 1-3) Stop: 01/21/20 04:23 Acetaminophen/Hydrocodone Bitart ([place] 5mg/325mg) 1 tab PO Q4HR PRN PRN Reason: Severe Pain (7-10) Stop: 01/21/20 04:23 Last Admin: 11/26/19 11:17 Dose: 1 tab Ascorbic Acid (Vitamin C) 500 mg PO DAILY [facility] Stop: 01/21/20 08:59 Last Admin: 11/29/19 08:26 Dose: 500 mg Aspirin (Ecotrin) 81 mg PO DAILY [facility] Stop: 01/21/20 08:59 Last Admin: 11/29/19 08:26 Dose: 81 mg Atorvastatin Calcium (Lipitor) 10 mg PO HS [facility]; Protocol Stop: 01/21/20 20:59 Last Admin: 11/29/19 21:03 Dose: 10 mg Bisacodyl (Dulcolax 10 Mg Supp) 10 mg RC DAILY PRN PRN Reason: Constipation Stop: 01/21/20 04:23 Calcium/Vitamin D (Oscal W/Vitamin D) 1 tab PO DAILY [facility] Stop: 01/21/20 08:59 Last Admin: 11/29/19 08:26 Dose: 1 tab Carvedilol (Coreg) 3.125 mg PO BID [facility] Stop: 01/21/20 08:59 Last Admin: 11/29/19 17:18 Dose: 3.125 mg Docusate Sodium (Colace) 100 mg PO DAILY [facility] Stop: 01/21/20 08:59 Last Admin: 11/29/19 08:28 Dose: 100 mg Donepezil HCl (Aricept) 5 mg PO HS [facility] Stop: 01/21/20 20:59 Last Admin: 11/29/19 21:04 Dose: 5 mg Ferrous Sulfate (Iron) 325 mg PO DAILY [facility] Stop: 01/21/20 08:59 Last Admin: 11/29/19 08:26 Dose: 325 mg Isosorbide Mononitrate (Imdur) 30 mg PO DAILY [facility] Stop: 01/27/20 08:59 Last Admin: 11/29/19 08:29 Dose: Not Given Lisinopril (Zestril) 10 mg PO HS [facility] Stop: 01/21/20 20:59 Last Admin: 11/29/19 21:03 Dose: Not Given Lorazepam (Ativan) 0.5 mg PO Q4HR PRN; Protocol PRN Reason: Anxiety Stop: 12/22/19 03:00 Last Admin: 11/28/19 02:13 Dose: 0.5 mg Magnesium Hydroxide (Milk Of Magnesia) 30 ml PO HS PRN PRN Reason: Constipation Stop: 01/22/20 04:52 Mirtazapine (Remeron) 15 mg PO HS [facility]; Protocol Stop: 01/21/20 20:59 Last Admin: 11/29/19 21:04 Dose: 15 mg Valproate Sodium (Depakene) 500 mg PO BID [facility]; Protocol Stop: 01/21/20 08:59 Last Admin: 11/29/19 17:18 Dose: 500 mg Zolpidem Tartrate (Ambien) 5 mg PO HS PRN PRN Reason: Insomnia Stop: 01/21/20 03:00 Last Admin: 11/29/19 21:36 Dose: 5 mg General: alert, demented HEENT: NC/AT, PERRLA Neck: Supple Lungs: CTAB Cardiovascular: RRR, Normal S1, Normal S2, without murmur Abdomen: soft, non-tender, non-distended, positive bowel sound Extremities: clear Neurological: no change Internal Medicine Assmt/Plan - Assessment Assessment: ASSESSMENT: Hypertension, hyperlipidemia, cardiomegaly, seizures, agitation. - Plan Plan: PLAN: Continue the patient's home medications. Seizure precautions, will initiate fall precautions. We will continue to follow this patient. Nutritional Asmnt/Malnutr-PDOC - Dietary Evaluation Malnutrition Findings (Please click <Entered> for more info): Nutritional Asmnt/Malnutrition Start: 11/26/19 13: 23 Text: Status: Complete Freq: Protocol: Document 11/26/19 13:23 JOSEYESENIA (Rec: 11/26/19 13:32 JOSEYESENIA [email or web address]) Nutritional Asmnt/Malnutrition Patient General Information Nutritional Screening Moderate Risk Diagnosis Psychosis Pertinent Medical Hx/Surgical Hx HTN, Hyperlipidemia, Cardiomegaly, Seizures Subjective Information Pt is a 79-year-old female admitted on 11/22 d/t increased agitation and wandering without being redirectable. Pt is eating an estimated 50% of meals since admit date (x4 days) Per Meal/Nutrition Activity Record. Dietary is currently providing an estimated 1900 kcals and 80 gm Pro, per Pt PO intake this is providing an estimated 950 kcals and 40gm Pro to meet 70% kcal and 73% Pro needs. Nurse to encourage improved PO intake, will continue to monitor and recommend supplement as needed. Spoke with pt nurse Diamond concerning high BG lab value. A1c was ordered 11/22, results not in chart. Diamond is going to call lab to print out another copy of results. Will monitor and make diet recommendations as appropriate. Anthropometrics HT: 5 FT WT: 120 LB (54.55 kg) BMI: 23.46 (normal) GI/ Skin Integrity GI: WNL, Soft, Flat, Non- tender BM: 11/24 x1 I/O: 120/Not Noted Skin: WNL, Intact Tee: 19 Diet Order: Cardiac, WILDER Estimated Energy Needs: ( Geriatric, CBW) 2171-1036 kcals (25-30 kcals/ kg) 55-65g Pro (1.0-1.2 g/kg) 2795-4544 ml (25-30 ml/kg) Current Diet Order/ Nutrition Support Cardiac, WILDER Pertinent Medications Vitamin C, Lipitor, Dulcolax ( PRN), Os-iz[place]a with Vitamin D, Coreg, Ferrous Sulfate, MOM ( PRN) Pertinent Labs 11/21: Glucose 148, Alk Phos 130, Chol 225, LDL 127, HDL 50 Nutritional Hx/Data Height 5 ft Height (Calculated Centimeters) 152.4 Current Weight (lbs) 120 lb Weight (Calculated Kilograms) 54.4 Weight (Calculated Grams) 09107.1 [place] Body Weight 100 LB (45.45 kg) % [place] Body Weight 120 Body Mass Index (BMI) 23.4 Weight Status Approriate GI Symptoms Last BM 11/24 x1 Skin Integrity/Comment: Skin: WNL, Intact Tee: 19 Current %PO Fair (50-74%) Estimated Nutritional Goals BEE in Kcals: Using Current wt Calories/Kcals/Kg 25-30 Kcals Calculated 3745-2245 Protein: Using Current wt Protein g/k.0-1.2 Protein Calculated 55-65 Fluid: ml 6493-9625 ml (25-30 ml/kg) Nutritional Problem 1. Problem Problem Altered nutrition related labs Etiology r/t endocrine dysfunction Signs/Symptoms: aeb labs (11/21) Glucose 148. Intervention/Recommendation Comments Continue Cardiac, WILDER diet as tolerated. Expected Outcomes/Goals Expected Outcomes/Goals 1.PO intake to meet 75% of estimated nutritional needs. 2.Monitor PO intake, wt, nutrition related labs, and skin integrity. 3.F/U as low risk in 7-10 days , 12/02-12/04.
[2019-11-30] MEDS: Calcium Carb/Vit D 500 mg/200 U Tab PO SCH (12:40)
[2019-11-30] MEDS: Ferrous Sulfate 325 MG TAB PO SCH (12:41)
[2019-11-30] MEDS: Multivitamin w/ Minerals Tab PO SCH (12:41)
[2019-11-30] MEDS: Atorvastatin Calcium 10 MG TAB PO SCH (21:29)
[2019-12-01] MEDS: Multivitamin w/ Minerals Tab PO SCH (08:43)
[2019-12-01] MEDS: Ferrous Sulfate 325 MG TAB PO SCH (08:43)
[2019-12-01] MEDS: Calcium Carb/Vit D 500 mg/200 U Tab PO SCH (08:43)
--- NOTE | 2019-12-01 09:48 | Discharge Summary ---
DATE OF DISCHARGE: 12/01/2019 DISCHARGE SUMMARY PATIENT'S AGE: 79. SEX: Female. PHYSICIAN: Dr. De La Cruz. FINAL DIAGNOSIS: PRIMARY DIAGNOSES: Bipolar disorder, manic episode, moderate, without psychotic features. REASON FOR HOSPITALIZATION: The patient is a 79-year-old female who was admitted to the hospital from [facility] because of increased agitation and the patient was wandering around the facility aimlessly. HOSPITAL COURSE: The patient continued to be anxious and slightly confused and wandering around the unit. The patient also seems to be slightly suspicious, but the patient was not paranoid. The patient also interacting slightly more and the patient also was compliant with taking her medications with no side effects of medications. Gradually, the patient's affect was brighter. The patient also was interacting appropriately. She also is easy to redirect her, and that she is not exhibiting a manic behavior. The patient was returned back to [facility]. The patient was compliant with taking her medications including Aricept 5 mg every day and Remeron 15 mg every day and also Depakote 500 mg every day. Depakote blood level was done on 11/30/2019 and came back to be 41. AFTER DISCHARGE PLANS: The patient discharged from the hospital and went back to [facility] with plans for followup there with her psychiatrist. EXPECTED OUTCOME AFTER DISCHARGE: Fair if the patient continued to take her psychotropic medications and follow up with discharge plans. [facility]# [id number]
--- NOTE | 2019-12-01 10:31 | Internal Medicine Prog Note ---
Internal Medicine Subjective - Subjective Service Date: 12/01/19 Patient seen and examined:: with staff, chart reviewed Patient is:: awake, verbal, agitated, confused Patient Complaints of:: other (Hx of Seizures.) Per staff patient has:: no adverse event, no episodes of fall, tolerating meds Internal Medicine Objective - Physical Exam Vitals and I&O: Vital Signs Temp 97.7 F 12/01/19 06:37 Pulse 63 12/01/19 08:44 Resp 16 12/01/19 08:00 BP 123/76 12/01/19 08:44 Pulse Ox 98 12/01/19 06:37 Intake & Output 11/30/19 12/01/19 12/01/19 18:59 06:59 18:59 Intake Total 120 Balance 120 Intake: Oral 120 Other: # Voids 1 # Bowel Movements 0 Active Medications: Current Medications Acetaminophen (Tylenol) 650 mg PO Q6HR PRN PRN Reason: Temperature above 101 Stop: 01/21/20 04:23 Acetaminophen (Tylenol) 650 mg PO Q8HR PRN PRN Reason: Pain (Mild 1-3) Stop: 01/21/20 04:23 Acetaminophen/Hydrocodone Bitart ([place] 5mg/325mg) 1 tab PO Q4HR PRN PRN Reason: Severe Pain (7-10) Stop: 01/21/20 04:23 Last Admin: 11/26/19 11:17 Dose: 1 tab Ascorbic Acid (Vitamin C) 500 mg PO DAILY [facility] Stop: 01/21/20 08:59 Last Admin: 12/01/19 08:43 Dose: 500 mg Aspirin (Ecotrin) 81 mg PO DAILY [facility] Stop: 01/21/20 08:59 Last Admin: 12/01/19 08:43 Dose: 81 mg Atorvastatin Calcium (Lipitor) 10 mg PO HS [facility]; Protocol Stop: 01/21/20 20:59 Last Admin: 11/30/19 21:29 Dose: 10 mg Bisacodyl (Dulcolax 10 Mg Supp) 10 mg RC DAILY PRN PRN Reason: Constipation Stop: 01/21/20 04:23 Calcium/Vitamin D (Oscal W/Vitamin D) 1 tab PO DAILY [facility] Stop: 01/21/20 08:59 Last Admin: 12/01/19 08:43 Dose: 1 tab Carvedilol (Coreg) 3.125 mg PO BID [facility] Stop: 01/21/20 08:59 Last Admin: 12/01/19 08:44 Dose: 3.125 mg Docusate Sodium (Colace) 100 mg PO DAILY [facility] Stop: 01/21/20 08:59 Last Admin: 12/01/19 08:43 Dose: 100 mg Donepezil HCl (Aricept) 5 mg PO HS [facility] Stop: 01/21/20 20:59 Last Admin: 11/30/19 21:29 Dose: 5 mg Ferrous Sulfate (Iron) 325 mg PO DAILY [facility] Stop: 01/21/20 08:59 Last Admin: 12/01/19 08:43 Dose: 325 mg Isosorbide Mononitrate (Imdur) 30 mg PO DAILY [facility] Stop: 01/27/20 08:59 Last Admin: 12/01/19 08:44 Dose: 30 mg Lisinopril (Zestril) 10 mg PO HS [facility] Stop: 01/21/20 20:59 Last Admin: 11/30/19 21:29 Dose: 10 mg Lorazepam (Ativan) 0.5 mg PO Q4HR PRN; Protocol PRN Reason: Anxiety Stop: 12/22/19 03:00 Last Admin: 11/28/19 02:13 Dose: 0.5 mg Magnesium Hydroxide (Milk Of Magnesia) 30 ml PO HS PRN PRN Reason: Constipation Stop: 01/22/20 04:52 Mirtazapine (Remeron) 15 mg PO HS [facility]; Protocol Stop: 01/21/20 20:59 Last Admin: 11/30/19 21:30 Dose: 15 mg Valproate Sodium (Depakene) 500 mg PO BID [facility]; Protocol Stop: 01/21/20 08:59 Last Admin: 12/01/19 08:42 Dose: 500 mg Zolpidem Tartrate (Ambien) 5 mg PO HS PRN PRN Reason: Insomnia Stop: 01/21/20 03:00 Last Admin: 11/29/19 21:36 Dose: 5 mg Physical Exam: [facility] and will continue present care management. General: alert, demented HEENT: NC/AT, PERRLA Neck: Supple Lungs: CTAB Cardiovascular: RRR, Normal S1, Normal S2, without murmur Abdomen: soft, non-tender, non-distended, positive bowel sound Extremities: clear Neurological: no change Internal Medicine Assmt/Plan - Assessment Assessment: Hypertension. Seizure disorder. Hyperlipidemia. Cardiomegaly. Agitation. - Plan Plan: Discharge planning to [facility]. Continue present care management. Nutritional Asmnt/Malnutr-PDOC - Dietary Evaluation Malnutrition Findings (Please click <Entered> for more info): Nutritional Asmnt/Malnutrition Start: 11/26/19 13: 23 Text: Status: Complete Freq: Protocol: Document 11/26/19 13:23 JOSEYESENIA (Rec: 11/26/19 13:32 JOSEYESENIA [email or web address]) Nutritional Asmnt/Malnutrition Patient General Information Nutritional Screening Moderate Risk Diagnosis Psychosis Pertinent Medical Hx/Surgical Hx HTN, Hyperlipidemia, Cardiomegaly, Seizures Subjective Information Pt is a 79-year-old female admitted on 11/22 d/t increased agitation and wandering without being redirectable. Pt is eating an estimated 50% of meals since admit date (x4 days) Per Meal/Nutrition Activity Record. Dietary is currently providing an estimated 1900 kcals and 80 gm Pro, per Pt PO intake this is providing an estimated 950 kcals and 40gm Pro to meet 70% kcal and 73% Pro needs. Nurse to encourage improved PO intake, will continue to monitor and recommend supplement as needed. Spoke with pt nurse Diamond concerning high BG lab value. A1c was ordered 11/22, results not in chart. Diamond is going to call lab to print out another copy of results. Will monitor and make diet recommendations as appropriate. Anthropometrics HT: 5 FT WT: 120 LB (54.55 kg) BMI: 23.46 (normal) GI/ Skin Integrity GI: WNL, Soft, Flat, Non- tender BM: 11/24 x1 I/O: 120/Not Noted Skin: WNL, Intact Tee: 19 Diet Order: Cardiac, WILDER Estimated Energy Needs: ( Geriatric, CBW) 2199-7280 kcals (25-30 kcals/ kg) 55-65g Pro (1.0-1.2 g/kg) 2030-6755 ml (25-30 ml/kg) Current Diet Order/ Nutrition Support Cardiac, WILDER Pertinent Medications Vitamin C, Lipitor, Dulcolax ( PRN), [place]-iz[place] with Vitamin D, Coreg, Ferrous Sulfate, MOM ( PRN) Pertinent Labs 2/18: Glucose 148, Alk Phos 130, Chol 225, LDL 127, HDL 50 Nutritional Hx/Data Height 1.52 m Height (Calculated Centimeters) 152.4 Current Weight (lbs) 54.431 kg Weight (Calculated Kilograms) 54.4 Weight (Calculated Grams) 97781.1 [place] Body Weight 100 LB (45.45 kg) % [place] Body Weight 120 Body Mass Index (BMI) 23.4 Weight Status Approriate GI Symptoms Last BM 11/24 x1 Skin Integrity/Comment: Skin: WNL, Intact Tee: 19 Current %PO Fair (50-74%) Estimated Nutritional Goals BEE in Kcals: Using Current wt Calories/Kcals/Kg 25-30 Kcals Calculated 9377-3539 Protein: Using Current wt Protein g/k.0-1.2 Protein Calculated 55-65 Fluid: ml 3640-7777 ml (25-30 ml/kg) Nutritional Problem 1. Problem Problem Altered nutrition related labs Etiology r/t endocrine dysfunction Signs/Symptoms: aeb labs (11/21) Glucose 148. Intervention/Recommendation Comments Continue Cardiac, WILDER diet as tolerated. Expected Outcomes/Goals Expected Outcomes/Goals 1.PO intake to meet 75% of estimated nutritional needs. 2.Monitor PO intake, wt, nutrition related labs, and skin integrity. 3.F/U as low risk in 7-10 days , 12/02-12/04.
--- NOTE | 2019-12-01 13:52 | Internal Medicine Prog Note ---
Internal Medicine Subjective - Subjective Service Date: 12/01/19 Patient is:: awake, verbal, agitated, confused Patient Complaints of:: other (Hx of Seizures.) Per staff patient has:: no adverse event, no episodes of fall, tolerating meds Internal Medicine Objective - Physical Exam Vitals and I&O: Vital Signs Temp 97.7 F 12/01/19 06:37 Pulse 63 12/01/19 08:44 Resp 16 12/01/19 08:00 BP 123/76 12/01/19 08:44 Pulse Ox 98 12/01/19 06:37 Intake & Output 11/30/19 12/01/19 12/01/19 18:59 06:59 18:59 Intake Total 120 Balance 120 Intake: Oral 120 Other: # Voids 1 # Bowel Movements 0 Active Medications: Current Medications Acetaminophen (Tylenol) 650 mg PO Q6HR PRN PRN Reason: Temperature above 101 Stop: 01/21/20 04:23 Acetaminophen (Tylenol) 650 mg PO Q8HR PRN PRN Reason: Pain (Mild 1-3) Stop: 01/21/20 04:23 Acetaminophen/Hydrocodone Bitart ([place] 5mg/325mg) 1 tab PO Q4HR PRN PRN Reason: Severe Pain (7-10) Stop: 01/21/20 04:23 Last Admin: 11/26/19 11:17 Dose: 1 tab Ascorbic Acid (Vitamin C) 500 mg PO DAILY [facility] Stop: 01/21/20 08:59 Last Admin: 12/01/19 08:43 Dose: 500 mg Aspirin (Ecotrin) 81 mg PO DAILY [facility] Stop: 01/21/20 08:59 Last Admin: 12/01/19 08:43 Dose: 81 mg Atorvastatin Calcium (Lipitor) 10 mg PO [facility]; Protocol Stop: 01/21/20 20:59 Last Admin: 11/30/19 21:29 Dose: 10 mg Bisacodyl (Dulcolax 10 Mg Supp) 10 mg RC DAILY PRN PRN Reason: Constipation Stop: 01/21/20 04:23 Calcium/Vitamin D (Oscal W/Vitamin D) 1 tab PO DAILY [facility] Stop: 01/21/20 08:59 Last Admin: 12/01/19 08:43 Dose: 1 tab Carvedilol (Coreg) 3.125 mg PO BID [facility] Stop: 01/21/20 08:59 Last Admin: 12/01/19 08:44 Dose: 3.125 mg Docusate Sodium (Colace) 100 mg PO DAILY [facility] Stop: 01/21/20 08:59 Last Admin: 12/01/19 08:43 Dose: 100 mg Donepezil HCl (Aricept) 5 mg PO HS [facility] Stop: 01/21/20 20:59 Last Admin: 11/30/19 21:29 Dose: 5 mg Ferrous Sulfate (Iron) 325 mg PO DAILY [facility] Stop: 01/21/20 08:59 Last Admin: 12/01/19 08:43 Dose: 325 mg Isosorbide Mononitrate (Imdur) 30 mg PO DAILY [facility] Stop: 01/27/20 08:59 Last Admin: 12/01/19 08:44 Dose: 30 mg Lisinopril (Zestril) 10 mg PO HS [facility] Stop: 01/21/20 20:59 Last Admin: 11/30/19 21:29 Dose: 10 mg Lorazepam (Ativan) 0.5 mg PO Q4HR PRN; Protocol PRN Reason: Anxiety Stop: 12/22/19 03:00 Last Admin: 11/28/19 02:13 Dose: 0.5 mg Magnesium Hydroxide (Milk Of Magnesia) 30 ml PO HS PRN PRN Reason: Constipation Stop: 01/22/20 04:52 Mirtazapine (Remeron) 15 mg PO HS [facility]; Protocol Stop: 01/21/20 20:59 Last Admin: 11/30/19 21:30 Dose: 15 mg Valproate Sodium (Depakene) 500 mg PO BID [facility]; Protocol Stop: 01/21/20 08:59 Last Admin: 12/01/19 08:42 Dose: 500 mg Zolpidem Tartrate (Ambien) 5 mg PO HS PRN PRN Reason: Insomnia Stop: 01/21/20 03:00 Last Admin: 11/29/19 21:36 Dose: 5 mg General: alert, demented HEENT: NC/AT, PERRLA Neck: Supple Lungs: CTAB Cardiovascular: RRR, Normal S1, Normal S2, without murmur Abdomen: soft, non-tender, non-distended, positive bowel sound Extremities: clear Neurological: no change Internal Medicine Assmt/Plan - Assessment Assessment: ASSESSMENT: Hypertension, hyperlipidemia, cardiomegaly, seizures, agitation. - Plan Plan: PLAN: Continue the patient's home medications. Seizure precautions, will initiate fall precautions. We will continue to follow this patient. Nutritional Asmnt/Malnutr-PDOC - Dietary Evaluation Malnutrition Findings (Please click <Entered> for more info): Nutritional Asmnt/Malnutrition Start: 11/26/19 13: 23 Text: Status: Complete Freq: Protocol: Document 11/26/19 13:23 JOSEYESENIA (Rec: 11/26/19 13:32 [email or web address]) Nutritional Asmnt/Malnutrition Patient General Information Nutritional Screening Moderate Risk Diagnosis Psychosis Pertinent Medical Hx/Surgical Hx HTN, Hyperlipidemia, Cardiomegaly, Seizures Subjective Information Pt is a 79-year-old female admitted on 11/22 d/t increased agitation and wandering without being redirectable. Pt is eating an estimated 50% of meals since admit date (x4 days) Per Meal/Nutrition Activity Record. Dietary is currently providing an estimated 1900 kcals and 80 gm Pro, per Pt PO intake this is providing an estimated 950 kcals and 40gm Pro to meet 70% kcal and 73% Pro needs. Nurse to encourage improved PO intake, will continue to monitor and recommend supplement as needed. Spoke with pt nurse Diamond concerning high BG lab value. A1c was ordered 11/22, results not in chart. Diamond is going to call lab to print out another copy of results. Will monitor and make diet recommendations as appropriate. Anthropometrics HT: 5 FT WT: 120 LB (54.55 kg) BMI: 23.46 (normal) GI/ Skin Integrity GI: WNL, Soft, Flat, Non- tender BM: 11/24 x1 I/O: 120/Not Noted Skin: WNL, Intact Tee: 19 Diet Order: Cardiac, WILDER Estimated Energy Needs: ( Geriatric, CBW) 1379-1057 kcals (25-30 kcals/ kg) 55-65g Pro (1.0-1.2 g/kg) 6869-5859 ml (25-30 ml/kg) Current Diet Order/ Nutrition Support Cardiac, WILDER Pertinent Medications Vitamin C, Lipitor, Dulcolax ( PRN), [place]-iz[place] with Vitamin D, Coreg, Ferrous Sulfate, MOM ( PRN) Pertinent Labs 11/21: Glucose 148, Alk Phos 130, Chol 225, LDL 127, HDL 50 Nutritional Hx/Data Height 5 ft Height (Calculated Centimeters) 152.4 Current Weight (lbs) 120 lb Weight (Calculated Kilograms) 54.4 Weight (Calculated Grams) 65349.1 [place] Body Weight 100 LB (45.45 kg) % [place] Body Weight 120 Body Mass Index (BMI) 23.4 Weight Status Approriate GI Symptoms Last BM 11/24 x1 Skin Integrity/Comment: Skin: WNL, Intact Tee: 19 Current %PO Fair (50-74%) Estimated Nutritional Goals BEE in Kcals: Using Current wt Calories/Kcals/Kg 25-30 Kcals Calculated 4593-9418 Protein: Using Current wt Protein g/k.0-1.2 Protein Calculated 55-65 Fluid: ml 2090-6135 ml (25-30 ml/kg) Nutritional Problem 1. Problem Problem Altered nutrition related labs Etiology r/t endocrine dysfunction Signs/Symptoms: aeb labs (11/21) Glucose 148. Intervention/Recommendation Comments Continue Cardiac, WILDER diet as tolerated. Expected Outcomes/Goals Expected Outcomes/Goals 1.PO intake to meet 75% of estimated nutritional needs. 2.Monitor PO intake, wt, nutrition related labs, and skin integrity. 3.F/U as low risk in 7-10 days , 12/02-12/04.
== END 2019-12-01 16:00 | DRG 885 ==
LOC: GERO 01:00
PROVIDERS: ADMIT Psychiatry & Neurology Psychiatry; ATTEND Psychiatry & Neurology Psychiatry
DX: F31.13 Bipolar disorder, current episode manic without psychotic features, severe (principal); E78.5 Hyperlipidemia, unspecified; G40.909 Epilepsy, unspecified, not intractable, without status epilepticus; I11.9 Hypertensive heart disease without heart failure; Z79.899 Other long term (current) drug therapy
CPT/HCPCS: 83036-90; G0410; Z7610